=== PATIENT | female | born 1955 | race Hispanic/Latino ===

== ENCOUNTER → 2023-06-28 | Outpatient (CLI) | payer MEDICARE, OTHER ==
[~2023-06-28] MED LIST: ATOR10 PO; CAL1TABL10 PO; CEVI30CA7 PO; CHOL500051 PO; CYCL30DR OU; FAMO-136 PO; GABA100C PO; LEFL20TA22 PO; OMEG300C3 PO; TRAM100T34 PO; TRAM50TA4 PO
== END | disposition home or self-care (01) ==
LOC: SHCH 12:30
PROVIDERS: ATTEND Student in an Organized Health Care Education/Training Program
DX: I08.2 Rheumatic disorders of both aortic and tricuspid valves (principal); I95.9 Hypotension, unspecified; E78.5 Hyperlipidemia, unspecified
CPT/HCPCS: 93306

== ENCOUNTER → 2024-12-12 | Outpatient (CLI) | payer MEDICARE ==
[~2024-12-12] MED LIST changes: -CEVI30CA7 PO; -GABA100C PO; -LEFL20TA22 PO; -TRAM100T34 PO; -TRAM50TA4 PO
--- NOTE | 2024-12-12 17:11 | HMCIMG ---
EXAM: MR Right Knee WITHOUT CONTRAST CLINICAL HISTORY: 69-year-old female with swelling in the right knee. TECHNIQUE: Multiplanar multisequence magnetic resonance images were obtained WITHOUT contrast. CONTRAST: None COMPARISON: 07/07/2023 FINDINGS: JOINTS: Moderate joint effusion. Moderate-sized marks's cyst. BONE: Grade 1 and grade 2 condyle changes, and patella involvement. SOFT TISSUES: Grade 1 sprain of the medial collateral ligament. There is a longitudinal tear of the posterior horn of the medial meniscus with a horizontal component to the body. Vertical tear of the posterior horn and lateral meniscus with a horizontal component to the body. Overall findings similar to prior MRI Right Knee 07/07/2023. IMPRESSION: 1. Longitudinal tear of the posterior horn of the medial meniscus with horizontal component to the body. 2. Vertical tear of the posterior horn of the lateral meniscus with horizontal component to the body. 3. Grade 1 sprain of the medial collateral ligament. 4. Moderate joint effusion and moderate-sized Marks's cyst. 5. Findings similar to prior MRI Right Knee 07/07/2023. /[place]
--- NOTE | 2024-12-13 04:39 | HMCIMG ---
EXAM: CR Right Knee, 2 views. CLINICAL HISTORY: Pain. COMPARISON: None. FINDINGS: No acute fracture or aggressive appearing osseous lesion. Mild osteopenia. Mild tricompartmental knee joint osteoarthritis. Moderate suprapatellar effusion. IMPRESSION: No acute bony abnormality is evident. Mild osteopenia. Mild tricompartmental osteoarthritis. Moderate suprapatellar effusion. /[place]
== END | disposition home or self-care (01) ==
LOC: RAH 14:22
PROVIDERS: ATTEND Internal Medicine
DX: S83.241A Other tear of medial meniscus, current injury, right knee, initial encounter (principal); S83.281A Other tear of lateral meniscus, current injury, right knee, initial encounter; S83.411A Sprain of medial collateral ligament of right knee, initial encounter; M17.11 Unilateral primary osteoarthritis, right knee; M00.9 Pyogenic arthritis, unspecified; M71.21 Synovial cyst of popliteal space [Baker], right knee; M85.88 Other specified disorders of bone density and structure, other site; M25.461 Effusion, right knee; M25.561 Pain in right knee; X58.XXXA Exposure to other specified factors, initial encounter; Y93.89 Activity, other specified; Y92.89 Other specified places as the place of occurrence of the external cause; Y99.8 Other external cause status
CPT/HCPCS: 73560; 73721